=== PATIENT | male | born 2000 | race African-American/Black ===

== ENCOUNTER 2020-05-31 09:50 | Emergency (ER) | payer OTHER ==
[~2020-05-31] VITALS: Ht 167.6 cm; Wt 63.5 kg
[2020-05-31] MEDS ORDERED: MORPHINE SULFATE 4 MG/ML CPJ (NOT FOR IM USE) IV STA (10:41)
[2020-05-31] MEDS ORDERED: ONDANSETRON HCL 4MG/2ML INJ IV STA (10:41)
[2020-05-31] MEDS ORDERED: SODIUM CHLORIDE 0.9% 1,000 ML IV ONE (10:45)
[2020-05-31 11:20] LABS: HEMATOCRIT. 51.4 % (42.0-52.0); HEMOGLOBIN. 18.1 g/dL (14.0-18.0); MEAN CORPUSCULAR HEMOGLOBIN 30.5 pg (28.0-32.0); MEAN CORPUSCULAR VOLUME 86.6 fL (80.0-94.0); MEAN PLATELET VOLUME 8.2 fl (7.4-10.4); PLATELET 170 x1000/uL (130-400); RED BLOOD CELL COUNT 5.93 mill/uL (4.7-6.1); RED CELL DISTRIBUTION WIDTH 13.2 % (11.6-14.6)
[2020-05-31 11:23] LABS: ETHANOL BLOOD < 10 mg/dL
[2020-05-31 11:37] LABS: CHLORIDE 99 mEq/L (98-107)
[2020-05-31 13:23] LABS: CLARITY URINE CLEAR (CLEAR); COLOR URINE DARK YELLOW (YELLOW); KETONES URINE 2+ (NEGATIVE); LEUKOCYTE ESTERASE URINE NEGATIVE (NEGATIVE); NITRITE URINE NEGATIVE (NEGATIVE); OCCULT BLOOD URINE NEGATIVE (NEGATIVE); PROTEIN URINE TRACE (NEGATIVE); SPECIFIC GRAVITY URINE 1.035 (1.005-1.030)
[2020-05-31 13:59] LABS: *AMPHETAMINES SCREEN URINE NEGATIVE (NEGATIVE); *BARBITURATES SCREEN URINE NEGATIVE (NEGATIVE); *BENZODIAZEPINES SCREEN URINE NEGATIVE (NEGATIVE); *COCAINE SCREEN URINE NEGATIVE (NEGATIVE); METHADONE URINE SCREEN NEGATIVE (NEGATIVE); OPIATES URINE SCREEN PRESUMTIVE POSITIVE (NEGATIVE)
[2020-05-31 14:00] LABS: CANNABINOID URINE SCREEN PRESUMTIVE POSITIVE (NEGATIVE); PHENCYCLIDINE URINE SCREEN NEGATIVE (NEGATIVE)
[2020-05-31 14:02] LABS: ATYPICAL LYMPHOCYTES 1
[2020-05-31 14:03] LABS: PLATELET ESTIMATE NORMAL
[2020-05-31 14:26] VITALS: BP 105/63
[2020-05-31] MEDS ORDERED: ONDA4TAB5 PO (14:27)
[2020-05-31 15:03] LABS: INR 1.1; PROTHROMBIN TIME 11.5 sec (9.6-11.0)
== END 2020-05-31 14:53 | disposition home or self-care (01) ==
LOC: ER 09:50 → EDBD 09:50 → ER 14:53
DX: A08.4 Viral intestinal infection, unspecified (principal); I49.9 Cardiac arrhythmia, unspecified
CPT/HCPCS: 36415; 76700; 80053; 80305; 80320; 81003; 83605; 83690; 85025; 85610; 93005; 96361; 96374; 96375; 99285; J2270; J2405; J7030; Z7610; G0480